=== PATIENT | female | born 1990 | race Two or more races ===

== ENCOUNTER 2018-02-12 23:08 | Emergency (ER) | payer SELFPAY ==
[2018-02-13] MEDS ORDERED: DIAZEPAM 5 MG TABLET PO ONE (00:59)
--- NOTE | 2018-02-13 01:01 | ER Document Report ---
ED General - General Chief Complaint: ETOH Abuse Stated Complaint: ANXIETY Time Seen by Provider: 02/12/18 23:50 Notes: Patient is a 27-year-old female with past medical history of depression, anxiety , PNES who presents after having 1 of her usual psychogenic seizures at home. She states that this episode did last for approximately 10 minutes and apparently was characteristic of her normal psychogenic seizures. She states that this was triggered by alcohol intoxication. She has been off all psychiatric medications for at least 6 months stating that she felt like she could control her anxiety and depression on her own. She denies any suicidal or homicidal ideation. States that she does still feel somewhat anxious at this time but denies any additional concerns. Specifically denies any headache , weakness, numbness or altered mental status. She has been evaluated for the possibility of seizures in the past and was diagnosed with pseudoseizures. TRAVEL OUTSIDE OF THE [place] IN LAST 30 DAYS: No - Related Data Allergies/Adverse Reactions: No Known Allergies Allergy (Verified 02/12/18 23:10) Past Medical History - General Information source: Patient - Social History Smoking Status: Never Smoker Frequency of alcohol use: Occasional Drug Abuse: None Lives with: Spouse/Significant other Family History: Reviewed & Not Pertinent Review of Systems - Review of Systems Notes: Constitutional: Negative for fever. HENT: Negative for sore throat. Eyes: Negative for visual changes. Cardiovascular: Negative for chest pain. Respiratory: Negative for shortness of breath. Gastrointestinal: Negative for abdominal pain, vomiting or diarrhea. Genitourinary: Negative for dysuria. Musculoskeletal: Negative for back pain. Skin: Negative for rash. Neurological: Negative for headaches, weakness or numbness. 10 point ROS negative except as marked above and in HPI. Physical Exam - Vital signs Vitals: Temp Pulse Resp BP Pulse Ox 98.4 F 90 20 98/67 L 98 02/12/18 23:22 02/12/18 23:22 02/12/18 23:22 02/12/18 23:22 02/12/18 23:22 Interpretation: Hypotensive - Resolved at the time of my assessment Notes: PHYSICAL EXAMINATION: GENERAL: Well-appearing, well-nourished and in no acute distress. HEAD: Atraumatic, normocephalic. EYES: Pupils equal round and reactive to light, extraocular movements intact, sclera anicteric, conjunctiva are normal. ENT: nares patent, oropharynx clear without exudates. Moist mucous membranes. NECK: Normal range of motion, supple without lymphadenopathy LUNGS: Breath sounds clear to auscultation bilaterally and equal. No wheezes rales or rhonchi. HEART: Regular rate and rhythm without murmurs ABDOMEN: Soft, nontender, normoactive bowel sounds. No guarding, no rebound. No masses appreciated. EXTREMITIES: Normal range of motion, no pitting or edema. No cyanosis. NEUROLOGICAL: Face symmetric. Tongue protrudes midline. Extraocular motions intact. Pupils are 2 mm and equally reactive. Normal speech, normal gait. 5 out of 5 strength in both the distal and proximal upper and lower extremities bilaterally. Sensation is grossly intact throughout. Finger to nose testing normal. Pronator drift normal. PSYCH: Moderately anxious SKIN: Warm, Dry, normal turgor, no rashes or lesions noted. Course - Re-evaluation Re-evalutation: 02/13/18 01:00 Patient presents with symptoms had a history consistent with PNES. Clinical history is inconsistent with an epileptic seizure and I do not believe any imaging or labs as indicated. Neurologic exam unremarkable without any focal neurologic deficits. No trauma sustained during today's episode. The patient does have a history of similar episodes in the past as well as a psychiatric history. At this time will discharge with return precautions and follow-up recommendations. Verbal discharge instructions given a the bedside and opportunity for questions given. Medication warnings reviewed. Patient is in agreement with this plan and has verbalized understanding of return precautions and the need for primary care follow-up in the next 24-72 hours. - Vital Signs Vital signs: Temp Pulse Resp BP Pulse Ox 98.3 F 84 20 103/71 99 02/13/18 01:12 02/13/18 01:12 02/13/18 01:12 02/13/18 01:12 02/13/18 01:12 Discharge - Discharge Clinical Impression: Pseudoseizure Alcohol intoxication Qualifiers: Complication of substance-induced condition: uncomplicated Qualified Code(s): F10.920 - Alcohol use, unspecified with intoxication, uncomplicated Condition: Good Disposition: HOME, SELF-CARE Additional Instructions: Your episode of shaking today was likely due to something called PNES, also known as pseudogenic non-epileptiform seizures. These are often also often referred to as pseudoseizures. These are not voluntary. However, they are not coming from an abnormal focus in your brain like somebody who has true epilepsy. These episodes can often be triggered by stress, anxiety, or not taking your normal medications. Please follow-up with your primary care doctor at your earliest ability. Return for any additional concerns you may have including if you develop a fever, nausea, vomiting, pass out, have focal weakness or numbness, or any other symptoms that are concerning to you.
[2018-02-13 01:12] VITALS: BP 103/71
== END 2018-02-13 01:12 | disposition home or self-care (01) ==
LOC: ER 23:08
DX: F10.920 Alcohol use, unspecified with intoxication, uncomplicated (principal); R56.9 Unspecified convulsions
CPT/HCPCS: 99284